=== PATIENT | male | born 1995 | race Two or more races ===

== ENCOUNTER 2022-11-07 20:02 | Day surgery (SDC) | payer OTHER ==
[2022-11-07 20:09] VITALS: BMI 28.8
[2022-11-07] MEDS ORDERED: ONDANSETRON 4 MG/2 ML VIAL IVPUSH ONE (21:12)
[2022-11-07] MEDS ORDERED: morphine CARPU-JECT 4 MG/1 ML DISP.SYRIN IVPUSH ONE ×2 (21:12→21:52)
[2022-11-07] MEDS ORDERED: SODIUM CHLORIDE 0.9% 500 ML INFUS.BAG IV ONE ×2 (21:14→23:48)
[2022-11-07] MEDS ORDERED: morphine SULFATE 4 MG/ML VIAL ONE ×2 (21:24→22:00)
[2022-11-07] MEDS ORDERED: ONDANSETRON 4 MG/2 ML VIAL ONE (21:25)
[2022-11-07 21:51] LABS: HEMATOCRIT 47.1 % (35.4-49); HEMOGLOBIN 15.6 GM/dL (11.7-16.9); MCH 28.8 pg (25.7-33.7); MCHC 33.1 g/dl (32.0-35.9); MEAN CELL VOLUME 87.1 fl (80-96); PLATELET COUNT 253 10^3/uL (134-434); RDW 12.8 % (11.9-15.9)
[2022-11-07 21:52] LABS: INR 1.17 (0.83-1.09); PROTHROMBIN TIME (PATIENT) 13.6 SEC (9.7-13.0)
[2022-11-07 21:55] LABS: ACTIVATED PTT 28.2 SECONDS (25.2-36.5)
[2022-11-07 22:02] LABS: POTASSIUM 3.8 mmol/L (3.5-5.1)
[2022-11-07 22:05] LABS: ALBUMIN 3.9 g/dl (3.4-5.0); BLOOD UREA NITROGEN 19.6 mg/dL (7-18); CALCIUM 9.1 mg/dL (8.5-10.1)
[2022-11-07 22:08] LABS: CREATININE 1.3 mg/dL (0.55-1.3)
[2022-11-07 22:10] LABS: BILIRUBIN,TOTAL 0.5 mg/dL (0.2-1); TOT PROT 7.7 g/dl (6.4-8.2)
[2022-11-07] MEDS ORDERED: HYDROmorphone HCl 2 MG/ML VIAL IVPUSH ONE (22:23)
[2022-11-07] MEDS ORDERED: HYDROmorphone HCl 2 MG/ML VIAL ONE (22:24)
[2022-11-07] MEDS ORDERED: TAMSULOSIN HCL 0.4 MG CAP PO ONE (23:48)
[2022-11-07] MEDS ORDERED: DOCUSATE SODIUM 100 MG CAPSULE (FP) PO PRN (23:49)
[2022-11-08] MEDS ORDERED: KETOROLAC TROMETHAMINE 30 MG/1 ML VIAL IM ONE (00:01)
[2022-11-08] MEDS ORDERED: KETOROLAC TROMETHAMINE 30 MG/1 ML VIAL IVPUSH ONE (00:05)
[2022-11-08] MEDS ORDERED: TAMSULOSIN HCL 0.4 MG CAP ONE (00:11)
[2022-11-08] MEDS ORDERED: KETOROLAC TROMETHAMINE 15 MG/ML VIAL ONE (00:11)
[2022-11-08] MEDS: SODIUM CHLORIDE 1,000 ML IV SCH ×2 (00:47→23:48)
[2022-11-08] MEDS ORDERED: ONDANSETRON 4 MG/2 ML VIAL IVPUSH ONE (03:14)
[2022-11-08] MEDS ORDERED: HYDROmorphone HCl 2 MG/ML VIAL ONE (03:22)
[2022-11-08] MEDS: HYDROmorphone HCl 2 MG/ML VIAL IVPUSH PRN ×2 (04:00→11:49)
[2022-11-08] MEDS ORDERED: HYDROmorphone HCl 2 MG/ML VIAL IVPUSH PRN (04:06)
[2022-11-08] MEDS ORDERED: KETOROLAC TROMETHAMINE 30 MG/1 ML VIAL IVPUSH PRN (04:10)
[2022-11-08 06:08] LABS: BASO % 0.4 % (0-2.0); HEMATOCRIT 43.9 % (35.4-49); HEMOGLOBIN 14.6 GM/dL (11.7-16.9); LYMPH % 11.9 % (8-40); MCH 29.2 pg (25.7-33.7); MCHC 33.4 g/dl (32.0-35.9); MEAN CELL VOLUME 87.5 fl (80-96); MEAN PLT VOLUME 7.6 fl (7.5-11.1); MONO % 5.7 % (3.8-10.2); PLATELET COUNT 228 10^3/uL (134-434); RBC 5.02 M/mm3 (4.00-5.60); WHITE BLOOD COUNT 11.5 K/mm3 (4.0-10.0)
[2022-11-08 06:26] LABS: EPI CELLS 16 /uL (0-25.1); HYALINE CASTS 0 /uL (0-3.1); URINE APPEARANCE Error; URINE BACTERIA 84 /uL (0-1359); URINE BILIRUBIN NEGATIVE (NEGATIVE); URINE COLOR ORANGE; URINE GLUCOSE (UA) NEGATIVE (NEGATIVE); URINE KETONE 1+ (NEGATIVE); URINE LEUK ESTERASE NEGATIVE (NEGATIVE); URINE NITRITE NEGATIVE (NEGATIVE); URINE PROTEIN 1+ (NEGATIVE); URINE RBC 7007 /uL (0-23.9); URINE UROBILINOGEN 0.2 mg/dL (0.2-1.0); URINE WBC 52 /uL (0-25.8)
[2022-11-08 06:28] LABS: POTASSIUM 4.5 mmol/L (3.5-5.1)
[2022-11-08 06:30] LABS: BLOOD UREA NITROGEN 21.2 mg/dL (7-18); CALCIUM 8.1 mg/dL (8.5-10.1)
[2022-11-08 06:33] LABS: CREATININE 1.6 mg/dL (0.55-1.3)
[2022-11-08] MEDS ORDERED: HYDROmorphone HCl 2 MG/ML VIAL IVPB ONE (08:53)
[2022-11-08] MEDS ORDERED: ONDANSETRON 4 MG/2 ML VIAL IVPUSH PRN (09:30)
[2022-11-08] MEDS ORDERED: TRIMETHOBENZAMIDE HCL 200MG/2ML INJ IM ONE (11:43)
[2022-11-08] MEDS ORDERED: METOCLOPRAMIDE HCL INJECTION 10 MG/2 ML VIAL IVPUSH ONE (12:30)
[2022-11-08] MEDS ORDERED: METOCLOPRAMIDE HCL INJECTION 10 MG/2 ML VIAL IVPUSH PRN (13:42)
[2022-11-08] MEDS ORDERED: SODIUM CHLORIDE 500 ML IV STA (14:02)
[2022-11-08] MEDS: CEFTRIAXONE 1 GM in DEXTROSE 5%-WATER - 50 ML IVPB SCH (14:55)
[2022-11-08] MEDS: TAMSULOSIN HCL 0.4 MG CAP PO SCH (14:56)
[2022-11-08] MEDS: ACETAMINOPHEN 1000 MG/100 ML BAG IVPB PRN (23:16)
[2022-11-09] MEDS: ACETAMINOPHEN 1000 MG/100 ML BAG IVPB PRN (06:05)
[2022-11-09] MEDS: TAMSULOSIN HCL 0.4 MG CAP PO SCH (08:07)
[2022-11-09 09:09] LABS: POTASSIUM 4.4 mmol/L (3.5-5.1)
[2022-11-09] MEDS: CEFTRIAXONE 1 GM in DEXTROSE 5%-WATER - 50 ML IVPB SCH (09:11)
[2022-11-09] MEDS: SODIUM CHLORIDE 1,000 ML IV SCH ×2 (09:12→17:14)
[2022-11-09 09:13] LABS: CALCIUM 8.1 mg/dL (8.5-10.1)
[2022-11-09 09:14] LABS: BLOOD UREA NITROGEN 12.1 mg/dL (7-18)
[2022-11-09 09:17] LABS: CREATININE 1.3 mg/dL (0.55-1.3)
[2022-11-09 09:18] LABS: TOT PROT 6.2 g/dl (6.4-8.2)
[2022-11-09 09:19] LABS: BILIRUBIN,TOTAL 0.7 mg/dL (0.2-1)
[2022-11-09] MEDS ORDERED: POLYETHYLENE GLYCOL (HEALTHYLAX) 3350 17 GM PACKET PO SCH (10:00)
[2022-11-09] MEDS ORDERED: LACTATED RINGERS SOLUTION 1,000 ML IV SCH ×4 (14:00→15:31)
[2022-11-09] MEDS ORDERED: ONDANSETRON 4 MG/2 ML VIAL IVPUSH PRN ×4 (14:00→15:31)
[2022-11-09] MEDS ORDERED: oxyCODONE HCL 5 MG TABLET PO PRN ×2 (14:00→15:31)
[2022-11-09] MEDS ORDERED: PROPOFOL 40 ML ONE (14:06)
[2022-11-09] MEDS ORDERED: ACETAMINOPHEN 500 MG TABLET (FP) PO PRN ×2 (15:24→15:31)
[2022-11-09] MEDS ORDERED: PROMETHAZINE HCL 25 MG/1 ML VIAL IVPB PRN ×2 (15:24→15:31)
[2022-11-09] MEDS ORDERED: KETOROLAC TROMETHAMINE 30 MG/1 ML VIAL IVPUSH PRN (15:31)
[2022-11-09] MEDS ORDERED: TRIMETHOBENZAMIDE HCL 200MG/2ML INJ IM ONE (15:31)
[2022-11-09] MEDS ORDERED: ACETAMINOPHEN 1000 MG/100 ML BAG IVPB PRN (15:31)
[2022-11-09] MEDS ORDERED: METOCLOPRAMIDE HCL INJECTION 10 MG/2 ML VIAL IVPUSH PRN (15:31)
[2022-11-09] MEDS ORDERED: oxyCODONE HCL 5 MG TABLET ONE (15:47)
[2022-11-09 19:24] VITALS: RESP 18
[2022-11-10] MEDS ORDERED: TAMSULOSIN HCL 0.4 MG CAP PO SCH (08:30)
[2022-11-10 09:12] VITALS: BP 118/66; PULSE 66; TEMP 98.3
[2022-11-10] MEDS: SODIUM CHLORIDE 1,000 ML IV SCH (09:54)
[2022-11-10 09:58] LABS: HEMATOCRIT 40.2 % (35.4-49); HEMOGLOBIN 13.9 GM/dL (11.7-16.9); MCH 29.6 pg (25.7-33.7); MCHC 34.5 g/dl (32.0-35.9); MEAN CELL VOLUME 85.8 fl (80-96); MEAN PLT VOLUME 7.4 fl (7.5-11.1); PLATELET COUNT 196 10^3/uL (134-434); RBC 4.68 M/mm3 (4.00-5.60); RDW 12.8 % (11.9-15.9); WHITE BLOOD COUNT 6.1 K/mm3 (4.0-10.0)
[2022-11-10] MEDS ORDERED: POLYETHYLENE GLYCOL (HEALTHYLAX) 3350 17 GM PACKET PO SCH (10:00)
[2022-11-10] MEDS ORDERED: CEFTRIAXONE 1 GM in DEXTROSE 5%-WATER - 50 ML IVPB SCH (10:00)
[2022-11-10 10:01] LABS: POTASSIUM 4.2 mmol/L (3.5-5.1)
[2022-11-10 10:08] LABS: ALBUMIN 2.7 g/dl (3.4-5.0); BLOOD UREA NITROGEN 10.4 mg/dL (7-18); CALCIUM 8.1 mg/dL (8.5-10.1)
[2022-11-10 10:11] LABS: CREATININE 1.1 mg/dL (0.55-1.3)
[2022-11-10 10:12] LABS: BILIRUBIN,TOTAL 0.7 mg/dL (0.2-1)
[2022-11-10 10:13] LABS: TOT PROT 5.8 g/dl (6.4-8.2)
[2022-11-21 17:11] LABS: WEIGHT 1 mg (.)
== END 2022-11-10 12:54 | disposition home or self-care (01) ==
LOC: JER 20:02 → JERBED 23:32 → UNDOADMOB 23:32 → J6S 11-08 06:50 → JERBED 11-08 06:50 → JASUSAT 11-09 15:19 → J6S 11-09 15:19 → JASUSAT 11-10 12:54
PROVIDERS: ATTEND Family Medicine
PROC: 0TC68ZZ Extirpation of Matter from Right Ureter, Via Natural or Artificial Opening Endoscopic (ICD-10-PCS; principal; 2022-11-09 16:00)
PROC: 0T768DZ Dilation of Right Ureter with Intraluminal Device, Via Natural or Artificial Opening Endoscopic (ICD-10-PCS; 2022-11-09 16:00)
DX: N13.2 Hydronephrosis with renal and ureteral calculous obstruction (principal)
CPT/HCPCS: 36415; 74177-TC; 80048; 80053; 81003; 82360; 83690; 85025; 85027; 85610; 85730; 86850; 86900; 86901; 87040; 87086; 88300-TC; 93005; 93010; 94760; 99285-25; C1758; C2617; Q9967